=== PATIENT | male | born 1970 | race Caucasian/White ===

== ENCOUNTER 2016-11-30 19:31 | Emergency (ER) | payer OTHER ==
[~2016-11-30] VITALS: Ht 185.4 cm; Wt 108.9 kg
[2016-11-30 20:00] LABS: ABSOLUTE BASOPHIL COUNT 0 /CUMM (0.0-0.2); ABSOLUTE EOSINOPHIL COUNT 0 /CUMM (0.0-0.7); ABSOLUTE GRANULOCYTE CT 17.8 /CUMM (1.4-6.5); ABSOLUTE LYMPH COUNT 2.2 /CUMM (1.2-3.4); ABSOLUTE MONOCYTE COUNT 1.1 /CUMM (0.10-0.60); BASOPHIL % 0.1 % (0.0-2.0); EOSINOPHIL % 0.1 % (0-5); GRANULOCYTE % 84.1 % (42.2-75.2); HEMATOCRIT 57.9 % (42-52); MEAN CORPUSCULAR HGB CONC 33.5 G/DL (33.0-37.0); MEAN CORPUSCULAR VOLUME 92.7 FL (80.0-94.0); MEAN PLATELET VOLUME 9.9 FL (7.4-10.4); PLATELET COUNT 197 /CUMM (130-400); RBC DISTRIBUTION WIDTH 13.9 % (11.5-14.5); RED BLOOD CELL CT 6.25 /CUMM (4.70-6.10); WHITE BLOOD CELL COUNT 21.1 /CUMM (4.8-10.8)
[2016-11-30 20:08] LABS: PT 12.2 SEC (9.4-12.5); PTT 36 SEC (25-37)
--- NOTE | 2016-11-30 21:32 | ED GI/GU/ABDOMINAL COMPLAINT ---
History of Present Illness General Chief Complaint: General Adult Stated Complaint: BLOOD IN STOOL/ABD PAIN Source: patient Exam Limitations: no limitations Vital Signs & Intake/Output Vital Signs & Intake/Output Vital Signs Date Time Temp Pulse Resp B/P Pulse O2 O2 Flow FiO2 Ox Delivery Rate 11/30 2347 97.6 75 18 148/84 97 Room Air Room Air 11/30 2210 97.5 74 18 154/88 97 Room Air Room Air 11/30 1944 97.3 72 18 160/89 96 Room Air ED Intake and Output 12/01 0000 11/30 1200 Intake Total 1000 Output Total Balance 1000 Intake, IV 1000 Patient 240 lb Weight Allergies Coded Allergies: No Known Allergies (11/30/16) Reconcile Medications Ciprofloxacin HCl (Cipro) 500 MG TABLET 1 TAB PO BID colitis Metronidazole (Flagyl) 500 MG TABLET 1 TAB PO TID COLITIS Oxycodone HCl/Acetaminophen (Percocet 5-325 MG Tablet) 5 MG-325 MG TABLET 1-2 TAB PO Q8P PRN PAIN Triage Note: PT STATES THAT HE HAS BEEN CONSTIPATED FOR A FEW DAYS, TOOK DUCOLAX AND YESTERDAY HE BECAME VERY SWEATY AND HAD DIFFUSE ABD PAIN, HAD LARGE BM AND EACH TIME HE HAD A LOOSE BM HE HAS HAD A LOT OF BLEEDING, STATES THAT BLOOD IS BRIGHT RED . STATES THAT HE CAN FEEL HEMROIDS Triage Nurses Notes Reviewed? yes Onset: Abrupt Duration: day(s): (6), constant, getting worse Timing: recent history Quality/Severity: moderate, sharpness, severe Location: generalized abdomen Activities at Onset: none No Modifying Factors: none HPI: 46-year-old male comes into emergency room for further evaluation of abdominal pain and blood in his stool. Patient reports that he has not been feeling well for the past 6 days. Patient reports initially started with constipation. Patient usually goes to the bathroom regularly twice a day did not have a bowel movement for a couple days. Patient reports that he was experiencing lower abdominal and mid abdomen pain is well. Pressure and sharp. Patient reports that he then took some [id number] ducolax to help go to the bathroom. Patient reports he had one bowel movement and then started to have bloody bowel movements her last 24 hours. Denies any fever chills vomiting. Some increased belching. Denies any urinary symptoms. Patient comes into emergency room for further evaluation.patient has never had a colonoscopy before. (ALE MARIE) Past History Travel History Traveled to [place] past 21 day No Medical History Any Pertinent Medical History? see below for history Neurological: NONE EENT: NONE Cardiovascular: NONE Respiratory: NONE Gastrointestinal: NONE Hepatic: NONE Renal: NONE Musculoskeletal: NONE Psychiatric: NONE Endocrine: NONE Blood Disorders: NONE Cancer(s): NONE ASSESSMENT RN/Reproductive: NONE Surgical History Surgical History: non-contributory Psychosocial History What is your primary language [place]ill[place] Tobacco Use: Current Daily Use Daily Tobacco Use Amount/Type: => 5 Cigarettes daily ETOH Use: denies use Illicit Drug Use: denies illicit drug use Family History Hx Contributory? No (ALE MARIE) Review of Systems Review of Systems Constitutional: Reports: no symptoms. EENTM: Reports: no symptoms. Respiratory: Reports: no symptoms. Cardiovascular: Reports: no symptoms. GI: Reports: see HPI. Genitourinary: Reports: no symptoms. Musculoskeletal: Reports: no symptoms. Skin: Reports: no symptoms. Neurological/Psychological: Reports: no symptoms. Hematologic/Endocrine: Reports: see HPI. Immunologic/Allergic: Reports: no symptoms. All Other Systems: Reviewed and Negative (ALE MARIE) Physical Exam Physical Exam General Appearance: well developed/nourished, no apparent distress, alert, awake Head: atraumatic, normal appearance Eyes: Bilateral: normal appearance, EOMI. Ears, Nose, Throat, Mouth: hearing grossly normal, moist mucous membrane Neck: normal inspection, full range of motion Respiratory: normal breath sounds, chest non-tender, no respiratory distress Cardiovascular: regular rate/rhythm Gastrointestinal: normal bowel sounds, soft, tenderness (mid abdomen) Rectal: heme positive stool, bloody stool Back: normal inspection Extremities: normal range of motion Neurologic/Psych: awake, alert, oriented x 3, normal gait, normal mood/affect Skin: intact, normal color Core Measures ACS in differential dx? No Severe Sepsis Present: No Septic Shock Present: No (ALE MARIE) Progress Differential Diagnosis: AMI, appendicitis, colon cancer, cholecystitis, diverticulitis, prostatitis, SBO, ureterolithiasis, urinary retention, urethritis, UTI/pyelo Plan of Care: Orders Procedure Date/time Status CULTURE,STOOL 11/30 2237 Active C.DIFFICILE 11/30 2237 Active PARTIAL THROMBOPLASTIN TIME 11/30 1944 Complete PROTHROMBIN TIME 11/30 1944 Complete LIPASE 11/30 1944 Complete ETHANOL 11/30 1944 Complete COMPREHENSIVE METABOLIC PANEL 11/30 1944 Complete CBC WITHOUT DIFFERENTIAL 11/30 1944 Complete AMYLASE 11/30 1944 Complete Laboratory Tests 11/30/161952: Anion Gap 12, Estimated GFR > 60, BUN/Creatinine Ratio 10.0, Glucose 109 H, Calcium 10.0, Total Bilirubin 1.2, AST 20, ALT 41, Alkaline Phosphatase 72, Total Protein 7.6, Albumin 4.4, Globulin 3.2, Albumin/Globulin Ratio 1.4, Amylase 30, Lipase 23, PT 12.2, INR 1.16, APTT 36, CBC w Diff MAN DIFF ORDERED, RBC 6.25 H, MCV 92.7, MCH 31.0, RDW 13.9, MPV 9.9, Gran % 84.1 H, Lymphocytes % 10.6 L, Monocytes % 5.1, Eosinophils % 0.1, Basophils % 0.1, Absolute Granulocytes 17.8 H, Segmented Neutrophils 85 H, Absolute Lymphocytes 2.2, Lymphocytes 12 L, Monocytes 3, Absolute Monocytes 1.1 H, Absolute Eosinophils 0, Absolute Basophils 0, Platelet Estimate ADEQUATE, Normocytic RBCs VERIFIED, Normochromic RBCs VERIFIED, PUBS MCHC 33.5, Fld Total RBCs Counted 100, Serum Alcohol < 10.0 Microbiology 11/30 2237 STOOL: Clostridium difficile Toxin A & B - ORD 11/30 2237 STOOL: Stool Culture - ORD Diagnostic Imaging: Viewed by Me: CT Scan. Discussed w/RAD: CT Scan. Radiology Impression: EXAM TYPE: CAT - CT ABD & PELVIS W IV CONTRAST EXAMINATION : CT ABDOMEN AND PELVIS WITH CONTRAST CLINICAL INFORMATION: Lower abdominal pain. COMPARISON: None TECHNIQUE: Multidetector volumetric imaging was performed of the abdomen and pelvis after the IV administration of 95 mL of Optiray 320 intravenous contrast. Sagittal and coronal reformatted images were obtained on the technologist's workstation. DLP: 834.54 mGy-cm FINDINGS: LUNG BASES: Linear scarring/atelectasis at right lung base. No pleural effusion. LIVER, GALLBLADDER , AND BILIARY TREE: Sharply marginated 1.4 cm hypodensity dome right lobe of liver. 7 mm hypodensity anterior left lobe of liver. 5 mm hypodensity adjacent to the gallbladder fossa. Statistically likely small hepatic cysts. No suspicious liver lesion. No intrapelvic bile duct dilatation. The gallbladder is unremarkable with no evidence of radiopaque gallstones, gallbladder wall thickening, or obvious pericholecystic inflammatory changes. PANCREAS: Unremarkable. SPLEEN: Unremarkable. ADRENAL GLANDS: Unremarkable. KIDNEYS AND URETERS: The kidneys are normal in size, shape, and attenuation. No hydronephrosis, hydroureter, or calculi seen. No perinephric stranding. BLADDER: Unremarkable. GASTROINTESTINAL TRACT: There is mild diverticular changes of the sigmoid colon. No edema or inflammation of the sigmoid. There is bowel wall thickening with subtle pericolonic edema at the mid transverse colon and also at the proximal descending colon. No diverticula in these regions. Findings of a nonspecific colitis. Most severe involvement at the distal transverse colon. No air in the bowel wall. No bowel obstruction. Moderate amount of stool in the colon. The appendix is normal. The small bowel loops are normal. ABDOMINAL WALL: Small bilateral fat-containing inguinal hernia. LYMPH NODES: Normal. VASCULAR: Unremarkable. PELVIC VISCERA: Unremarkable. OSSEOUS STRUCTURES: Unremarkable. IMPRESSION: Bowel wall thickening of the transverse colon and the proximal descending colon due to a nonspecific colitis. There are diverticula in the sigmoid colon but no inflammation involving the sigmoid. DICTATED BY: GEGE VALLADARES MD DATE/TIME DICTATED:11/30/162212 OFFICE SUPPORT:APRIL DATE/TIME TRANSCRIBED:11/30/162212 Initial ED EKG: none Comments: 11/30/2016 11:54:33 PM Patient clinically looks well. Hemodynamically stable. Feels better after IV medication. Case was discussed with Dr. Rapp as well as Dr. garvey. It was decided that the patient will be discharged home on oral antibiotics. Patient was unable to provide stool sample here. Patient was given a cup to bring a stool sample into Dr. Valdovinos's office. Patient is going to see him tomorrow in the office clear liquid diet until then. Patient was told to return if any increased bleeding increased pain or any other concerns worsening symptoms. Reevaluated multiple times. Patient understands and agrees with plan of care. (ALEJANDRINA WOLFE,ALE) Departure Departure Disposition: HOME OR SELF CARE Condition: Stable Clinical Impression Primary Impression: Colitis Referrals: ADILIA BECERRA,DYANA Arenas PATIENT HAS NO PRIMARY CARE DR (PCP/Family) Additional Instructions: Take ciprofloxacin and Flagyl as prescribed. Take Percocet as prescribed. Call GI doctor tomorrow for follow-up appointment. Clear liquid diet. Return to the emergency room immediately if any increased bleeding, increased pain, vomiting, fever, or any other concerns worsening symptoms. Please go over all results of today's visit with your primary care doctor. Contact your primary care doctor to let them know you were here in the emergency room. There may be nonspecific findings which may not be related to your visit today here in the emergency room but may require further evaluation and chronic monitoring by your primary care doctor. If you had a laceration today the chance of foreign body always remains. You should follow-up with your primary care doctor for recheck in 3-5 days for a wound check. If you had an x-ray done there is a chance that a fracture could have been missed on initial read and you should follow-up with your primary care doctor for repeat x-rays if symptoms persist. If your blood pressure was elevated here in the emergency room please have rechecked by her primary care doctor within the next 48 hours by your primary care doctor. If you were prescribed a narcotic here in the emergency room or any type of controlled substances you're not allowed to drive while taking this medication or operate any type of heavy machinery. Narcotics can make you feel lightheaded dizziness nausea and can cause constipation. You may need to pick up driver a stool softener. Thank you for choosing [facility] emergency room. Please return to the emergency room immediately if you have any other concerns worsening of symptoms. Departure Forms: Customer Survey General Discharge Information Prescriptions: Current Visit Scripts Ciprofloxacin HCl (Cipro) 1 TAB PO BID #20 TAB Metronidazole (Flagyl) 1 TAB PO TID #30 TAB Oxycodone HCl/Acetaminophen (Percocet 5-325 MG Tablet) 1-2 TAB PO Q8P PRN PAIN #10 TAB (ALE MARIE) PA/CLERK TELE[employer]ION [employer] Co-Sign Statement Statement: ED Attending supervision documentation- [] I saw and evaluated the patient. I have also reviewed all the pertinent lab results and diagnostic results. I agree with the findings and the plan of care as documented in the PA's/CLERK TELE[employer]ION [employer]'s documentation. [X] I have reviewed the ED Record and agree with the PA's/CLERK TELE[employer]ION [employer]'s documentation. [] Additions or exceptions (if any) to the PAs/CLERK TELE[employer]ION [employer]'s note and plan are summarized below: [] (JEEVAN BECERRA,ALEKSANDER Manuel)
--- NOTE | 2016-11-30 22:23 | CT SCAN REPORT ---
EXAMINATION: CT ABDOMEN AND PELVIS WITH CONTRAST CLINICAL INFORMATION: Lower abdominal pain. COMPARISON: None TECHNIQUE: Multidetector volumetric imaging was performed of the abdomen and pelvis after the IV administration of 95 mL of Optiray 320 intravenous contrast. Sagittal and coronal reformatted images were obtained on the technologist's workstation. DLP: 834.54 mGy-cm FINDINGS: LUNG BASES: Linear scarring/atelectasis at right lung base. No pleural effusion. LIVER, GALLBLADDER, AND BILIARY TREE: Sharply marginated 1.4 cm hypodensity dome right lobe of liver. 7 mm hypodensity anterior left lobe of liver. 5 mm hypodensity adjacent to the gallbladder fossa. Statistically likely small hepatic cysts. No suspicious liver lesion. No intrapelvic bile duct dilatation. The gallbladder is unremarkable with no evidence of radiopaque gallstones, gallbladder wall thickening, or obvious pericholecystic inflammatory changes. PANCREAS: Unremarkable. SPLEEN: Unremarkable. ADRENAL GLANDS: Unremarkable. KIDNEYS AND URETERS: The kidneys are normal in size, shape, and attenuation. No hydronephrosis, hydroureter, or calculi seen. No perinephric stranding. BLADDER: Unremarkable. GASTROINTESTINAL TRACT: There is mild diverticular changes of the sigmoid colon. No edema or inflammation of the sigmoid. There is bowel wall thickening with subtle pericolonic edema at the mid transverse colon and also at the proximal descending colon. No diverticula in these regions. Findings of a nonspecific colitis. Most severe involvement at the distal transverse colon. No air in the bowel wall. No bowel obstruction. Moderate amount of stool in the colon. The appendix is normal. The small bowel loops are normal. ABDOMINAL WALL: Small bilateral fat-containing inguinal hernia. LYMPH NODES: Normal. VASCULAR: Unremarkable. PELVIC VISCERA: Unremarkable. OSSEOUS STRUCTURES: Unremarkable. IMPRESSION: Bowel wall thickening of the transverse colon and the proximal descending colon due to a nonspecific colitis. There are diverticula in the sigmoid colon but no inflammation involving the sigmoid.
[2016-11-30] MEDS ORDERED: PERCOCET 5-3251 EACH PO (22:46)
[2016-11-30] MEDS ORDERED: FLAGYL500 MG PO (22:46)
[2016-11-30] MEDS ORDERED: CIPRO500 M1 PO (22:46)
[2016-11-30 23:47] VITALS: BP 148/84
== END 2016-11-30 23:48 ==
LOC: ERH 19:31
PROVIDERS: Emergency Medicine
DX: K52.9 Noninfective gastroenteritis and colitis, unspecified (principal)
CPT/HCPCS: 74177; 87045; 96361; 96374; 96375; G0480; J2405